=== PATIENT | female | born 1975 | race Caucasian/White ===

== ENCOUNTER 2016-12-16 03:22 | Emergency (ER) | payer SELFPAY ==
[~2016-12-16] VITALS: Ht 179.1 cm; Wt 173.7 kg
[2016-12-16] MEDS ORDERED: NOMEDS XX (03:28)
[2016-12-16 03:36] LABS: HEMOGLOBIN 13.7 g/dL (12.2-16.2); LYMPH # 3.2 K/mm3 (0.7-4.5); LYMPH % 22.3 % (10-50.0)
--- NOTE | 2016-12-16 03:43 | Emergency Room Report ---
History of Present Illness Time Seen by [id number] Presenting Problem in Triage Pt arrived:Walked Presenting Problem:PT STATES SHE HAS BEEN HAVING INTERMITTENT CHEST DISCOMFORT FOR OVER A WEEK THOUGHT IT WAS A PANIC ATTACK BUT PROGRESSIVELY GETTING WORSE. 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 N Clinical Suspician of Infection? N Mental Status: 1 - Regular (Normal Baseline) Sepsis Risk:Low Sepsis Risk Have you (or family members/close friends) recently traveled outside the [place]? N If Yes, where/when: Have you had exposure to infectious disease within the past month? TB? Other? Specify: Source patient, RN notes reviewed, family, old records Exam Limitations no limitations Comment pt with episodes of mid sternal/epigastric pain with no sob over the last week Cardiac Chest Pain Chest pain indicative of cardiac No Timing/Duration this morning Severity moderate ALLERGIES Coded Allergies: aspirin (Mild, 12/16/16) doxycycline (Mild, 12/16/16) Uncoded Allergies: PCN (Mild, 12/16/16) Home Medications Reported Medications No Home Medications (NO HOME MEDICATIONS) 1 EACH XX ONCE History Medical History General Hypertension? No Hyperlipidemia? No CHF? No DVT? No PE? No COPD? No Asthma? No Seizures? Yes Diabetes? No End Stage Renal Disease? No UTI? No Stones? No BPH? No GB Disease: No Nephritic Syndrome? No Asplenia? No Hepatitis? No Sickle Cell Disease? No Arthritis? Yes Migraines? No Anxiety? Yes Depression? Yes Cancer? No More? 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 Respiratory denies cough, shortness of breath Cardiovascular chest pain, denies palpitations, denies syncope Gastrointestinal denies abdominal pain, denies diarrhea, denies vomiting Genitourinary denies: dysuria, frequency, hesitancy, hematuria. Musculoskeletal denies back pain, denies joint pain, denies neck pain Skin denies rash Psychiatric/Neurological denies headache, denies seizure Physical Exam Vital Signs Vital Signs Date Time Temp Pulse Resp B/P Pulse O2 O2 Flow FiO2 Ox Delivery Rate 12/16 0620 80 20 121/68 99 12/16 0535 80 20 121/70 99 12/16 0448 86 20 158/83 96 12/16 0324 97.6 91 18 150/85 98 - WBC >12,000 or <4,000 or 10% bands? 2 or more SIRS Criteria Met? B/P:121/68 MAP:106 Creatinine >2.0? UA output<0.5ml/kg/hr for 2 hrs? Platelet count >100,000? Lactate >2.0mmol/1? INR >1.2 or PTT > than 60 sec? Evidence of Organ Dysfunction? Provider documented clinical suspician of infection? N Sepsis Criteria Count: 1 Sepsis Risk: Low Sepsis Risk General Appearance no apparent distress Eye Exam - bilateral eye PERRL, bilateral eye EOMI Ear, Nose, Throat normal ENT inspection Neck supple Respiratory Status No: respiratory distress. Lung Sounds bilateral: lungs clear. 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 No Results/Orders Laboratory Tests 12/16/16 0530: Creatine Kinase 78, CK-MB (CK-2) Rel Index 1.2, CK and CKMB Interp 0.9, Troponin I < 0.02 12/16/16 0330: Sodium 140, Potassium 3.9, Chloride 105, Carbon Dioxide 26, BUN 11, Creatinine 0.6, Estimated Creat Clear 342 H, Estimated GFR (MDRD) 111, Glucose 164 H, Calcium 8.4 L, Total Bilirubin 0.2, AST 16, ALT 31, Alkaline Phosphatase 131 H , Creatine Kinase 75, CK-MB (CK-2) Rel Index 1.6, CK and CKMB Interp 1.2, Troponin I < 0.02, Total Protein 6.6, Albumin 2.9 L, Globulin 3.7 H, Albumin/ Globulin Ratio 0.8 L, WBC 14.4 H, RBC 4.77, Hgb 13.7, Hct 42.4, MCV 88.8, RDW 15.1, Plt Count 279, MPV 5.7 L, Gran % 72.8, Gran # 10.5 H, Lymphocytes % 22.3 , Monocytes % 3.2, Eosinophils % 1.5, Basophils % 0.2, Lymphocytes # 3.2, Monocytes # 0.5, Eosinophils # 0.2, Basophils # 0.0, PUBS MCHC 32.2, MCH 28.6 Current Medication Orders Sig/Art Start time Last Medication Dose Route Stop Time Status Admin Famotidine 20 MG ONCE ONE 12/16 414 DC 12/16 IV 12/16 041 0408 Metoclopramide HCl 10 MG ONCE ONE 12/16 0415 DC 12/16 IVP 12/16 041 0408 Sodium Chloride 8 ML ONCE ONE 12/165 DC 12/16 IV 12/16 0416 0408 Metoclopramide HCl 0 .STK-MED ONE 12/16 0406 DC .ROUTE Famotidine 0 .STK-MED ONE 12/16 0405 DC IV Sodium Chloride 10 ML PRN PRN 12/16 033 AC IV 12/17 0330 Orders Procedure Date/time Status CARDIAC ENZYMES 12/16 0529 Complete 12 LEAD EKG-[facility] (INITIAL) 12/16 329 Active ELECTROCARDIOGRAM REQUEST 12/16 329 Active CHEST(2 VIEWS-NOT PORTABLE) 12/16 033 Active IV SALINE LOCK 12/16 329 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 ST/Twave chgs XRAY/CT/US XRAY/CT/US XRAY chest XR interpretation by reviewed by me Xray Results normal/NAD Departure Departure Time of Disposition 0639 Disposition DC Home or Self Care(routine) Clinical Impression Primary Impression: Chest pain Qualifiers: Chest pain type: unspecified Qualified Code: R07.9 - Chest pain, unspecified Condition STABLE Referrals NO REFERRAL Patient Instructions DI for Chest Pain Additional Instructions see pcp for follow up Discharge Counseling Counseled pt/family regarding diagnosis, follow up needs ED Critical Care Critical Care No at [phone]
--- NOTE | 2016-12-16 03:43 | Emergency Room Report ---
History of Present Illness Time Seen by [id number] Presenting Problem in Triage Pt arrived:Walked Presenting Problem:PT STATES SHE HAS BEEN HAVING INTERMITTENT CHEST DISCOMFORT FOR OVER A WEEK THOUGHT IT WAS A PANIC ATTACK BUT PROGRESSIVELY GETTING WORSE. 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 N Clinical Suspician of Infection? N Mental Status: 1 - Regular (Normal Baseline) Sepsis Risk:Low Sepsis Risk Have you (or family members/close friends) recently traveled outside the [place]? N If Yes, where/when: Have you had exposure to infectious disease within the past month? TB? Other? Specify: Source patient, RN notes reviewed, family, old records Exam Limitations no limitations Comment pt with episodes of mid sternal/epigastric pain with no sob over the last week Cardiac Chest Pain Chest pain indicative of cardiac No Timing/Duration this morning Severity moderate ALLERGIES Coded Allergies: aspirin (Mild, 12/16/16) doxycycline (Mild, 12/16/16) Uncoded Allergies: PCN (Mild, 12/16/16) Home Medications Reported Medications No Home Medications (NO HOME MEDICATIONS) 1 EACH XX ONCE History Medical History General Hypertension? No Hyperlipidemia? No CHF? No DVT? No PE? No COPD? No Asthma? No Seizures? Yes Diabetes? No End Stage Renal Disease? No UTI? No Stones? No BPH? No GB Disease: No Nephritic Syndrome? No Asplenia? No Hepatitis? No Sickle Cell Disease? No Arthritis? Yes Migraines? No Anxiety? Yes Depression? Yes Cancer? No More? 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 Respiratory denies cough, shortness of breath Cardiovascular chest pain, denies palpitations, denies syncope Gastrointestinal denies abdominal pain, denies diarrhea, denies vomiting Genitourinary denies: dysuria, frequency, hesitancy, hematuria. Musculoskeletal denies back pain, denies joint pain, denies neck pain Skin denies rash Psychiatric/Neurological denies headache, denies seizure Physical Exam Vital Signs Vital Signs Date Time Temp Pulse Resp B/P Pulse O2 O2 Flow FiO2 Ox Delivery Rate 12/16 0620 80 20 121/68 99 12/16 0535 80 20 121/70 99 12/16 0448 86 20 158/83 96 12/16 0324 97.6 91 18 150/85 98 - WBC >12,000 or <4,000 or 10% bands? 2 or more SIRS Criteria Met? B/P:121/68 MAP:106 Creatinine >2.0? UA output<0.5ml/kg/hr for 2 hrs? Platelet count >100,000? Lactate >2.0mmol/1? INR >1.2 or PTT > than 60 sec? Evidence of Organ Dysfunction? Provider documented clinical suspician of infection? N Sepsis Criteria Count: 1 Sepsis Risk: Low Sepsis Risk General Appearance no apparent distress Eye Exam - bilateral eye PERRL, bilateral eye EOMI Ear, Nose, Throat normal ENT inspection Neck supple Respiratory Status No: respiratory distress. Lung Sounds bilateral: lungs clear. 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 No Results/Orders Laboratory Tests 12/16/16 0530: Creatine Kinase 78, CK-MB (CK-2) Rel Index 1.2, CK and CKMB Interp 0.9, Troponin I < 0.02 12/16/16 0330: Sodium 140, Potassium 3.9, Chloride 105, Carbon Dioxide 26, BUN 11, Creatinine 0.6, Estimated Creat Clear 342 H, Estimated GFR (MDRD) 111, Glucose 164 H, Calcium 8.4 L, Total Bilirubin 0.2, AST 16, ALT 31, Alkaline Phosphatase 131 H , Creatine Kinase 75, CK-MB (CK-2) Rel Index 1.6, CK and CKMB Interp 1.2, Troponin I < 0.02, Total Protein 6.6, Albumin 2.9 L, Globulin 3.7 H, Albumin/ Globulin Ratio 0.8 L, WBC 14.4 H, RBC 4.77, Hgb 13.7, Hct 42.4, MCV 88.8, RDW 15.1, Plt Count 279, MPV 5.7 L, Gran % 72.8, Gran # 10.5 H, Lymphocytes % 22.3 , Monocytes % 3.2, Eosinophils % 1.5, Basophils % 0.2, Lymphocytes # 3.2, Monocytes # 0.5, Eosinophils # 0.2, Basophils # 0.0, PUBS MCHC 32.2, MCH 28.6 Current Medication Orders Sig/Art Start time Last Medication Dose Route Stop Time Status Admin Famotidine 20 MG ONCE ONE 12/16 414 DC 12/16 IV 12/16 041 0408 Metoclopramide HCl 10 MG ONCE ONE 12/16 0415 DC 12/16 IVP 12/16 041 0408 Sodium Chloride 8 ML ONCE ONE 12/165 DC 12/16 IV 12/16 0416 0408 Metoclopramide HCl 0 .STK-MED ONE 12/16 0406 DC .ROUTE Famotidine 0 .STK-MED ONE 12/16 0405 DC IV Sodium Chloride 10 ML PRN PRN 12/16 033 AC IV 12/17 0330 Orders Procedure Date/time Status CARDIAC ENZYMES 12/16 0529 [facility] 12/16 329 Active ELECTROCARDIOGRAM REQUEST 12/16 329 Active CHEST(2 VIEWS-NOT PORTABLE) 12/16 033 Active IV SALINE LOCK 12/16 329 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 ST/Twave chgs XRAY/CT/US XRAY/CT/US XRAY chest XR interpretation by reviewed by me Xray Results normal/NAD Departure Departure Time of Disposition 0639 Disposition DC Home or Self Care(routine) Clinical Impression Primary Impression: Chest pain Qualifiers: Chest pain type: unspecified Qualified Code: R07.9 - Chest pain, unspecified Condition STABLE Referrals NO REFERRAL Patient Instructions DI for Chest Pain Additional Instructions see pcp for follow up Discharge Counseling Counseled pt/family regarding diagnosis, follow up needs ED Critical Care Critical Care No at [phone]
[2016-12-16 04:08] LABS: BUN 11 mg/dL (7-18)
[2016-12-16 04:12] LABS: GFR (ESTIMATED) 111 ML/MIN (59-)
[2016-12-16 06:48] VITALS: BP 121/68
--- NOTE | 2016-12-16 08:25 | RADIOLOGY REPORT PS360 ---
CHEST(2 VIEWS-NOT PORTABLE) HISTORY: CP X 1 WEEK ORDERING PHYSICIAN: Jhonny Jeter MD PATIENT AGE: 41 years COMPARISON: None available FINDINGS: The cardiomediastinal silhouette and pulmonary vascularity are within normal limits. Patchy infiltrate is present within the lingula. The remaining lungs are clear.. No acute bony abnormalities. IMPRESSION: Lingular infiltrate
== END 2016-12-16 06:50 | disposition home or self-care (01) ==
LOC: ER 03:22
PROVIDERS: Emergency Medicine
DX: R07.9 Chest pain, unspecified (principal); R10.13 Epigastric pain; Z72.0 Tobacco use